=== PATIENT | male | born 2000 | race Caucasian/White ===

== ENCOUNTER 2019-01-23 14:34 | Emergency (ER) | payer SELFPAY ==
[2019-01-23 15:19] VITALS: BP 124/80; PULSE 65; RESP 13; TEMP 36.6; O2SAT 100
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
== END 2019-01-23 15:59 | disposition home or self-care (01) ==
PROVIDERS: Emergency Provider Emergency Medicine
DX: K13.79 Other lesions of oral mucosa (principal)
CPT/HCPCS: 99282